=== PATIENT | male | born 2000 | race Caucasian/White ===

== ENCOUNTER 2021-09-04 03:33 | Emergency (ER) | payer OTHER ==
[~2021-09-04] VITALS: Ht 177.8 cm; Wt 71.4 kg
[2021-09-04 03:39] VITALS: TEMP 97.8
[2021-09-04 03:54] LABS: BASO % 0.3 % (0.0-2.0); EOS # 0.1 K/mm3 (0.0-0.7); EOS % 0.9 % (0.0-4.0); GRAN # 6.5 K/mm3 (1.4-6.5); HEMATOCRIT 40.7 % (42.0-52.0); HEMOGLOBIN 13.9 g/dl (13.5-18.0); LYMPH # 1.8 K/mm3 (1.2-3.4); LYMPH % 19.4 % (20.0-51.0); MEAN CELL VOLUME 83 fl (80.0-100.0); MEAN CORPUSCULAR HEMOGLOBIN 28 pg (27-31); MEAN CORPUSCULAR HGB CONC 34 g/dl (33.0-37.0); MEAN PLATELET VOLUME 9.2 fl (7.4-10.4); MONO # 0.6 K/mm3 (0.1-0.6); PLATELET COUNT 176 K/mm3 (130-400); RED BLOOD COUNT 4.91 M/mm3 (4.20-5.60); REDCELL DISTRIBUTION WIDTH-CV 12.4 % (11.5-14.5)
[2021-09-04 04:09] LABS: ALBUMIN 4.3 gm/dL (3.5-5.0); BILIRUBIN,TOTAL 0.4 mg/dL (0.2-1.2); CALCIUM 8.5 mg/dL (8.4-10.2); CREATININE, serum 1.02 mg/dL (0.72-1.25); POTASSIUM 3.7 mmol/L (3.5-4.5)
[2021-09-04 06:20] LABS: TRICYCLIC ANTIDEPRESS URINE NEGATIVE
[2021-09-04 08:38] VITALS: BP 108/55; PULSE 57
== END 2021-09-04 09:00 | disposition home or self-care (01) ==
LOC: COL.ER 03:33
PROVIDERS: Emergency Medicine
DX: F10.129 Alcohol abuse with intoxication, unspecified (principal); Z28.310 Unvaccinated for COVID-19
CPT/HCPCS: J2405; J7030